=== PATIENT | female | born 1985 | race Caucasian/White ===

== ENCOUNTER 2021-06-05 02:04 | Emergency (ER) | payer SELFPAY ==
[~2021-06-05] VITALS: Ht 160 cm; Wt 69.0 kg
[2021-06-05 02:19] VITALS: BP 136/90
[2021-06-05] MEDS ORDERED: LORAZEPAM 0.5MG TABLET PO ONE (03:00)
== END 2021-06-05 05:18 | disposition home or self-care (01) ==
LOC: ER 02:04
DX: F41.9 Anxiety disorder, unspecified (principal); Z00.00 Encounter for general adult medical examination without abnormal findings
CPT/HCPCS: 99283